=== PATIENT | male | born 1980 | race Caucasian/White ===

== ENCOUNTER 2017-07-23 06:14 | Day surgery (SDC) | payer BC ==
[~2017-07-23] VITALS: Ht 172.7 cm; Wt 86.0 kg
[2017-07-23] MEDS ORDERED: LACTATED RINGERS 1,000 ML IV SCH (06:50)
[2017-07-23] MEDS ORDERED: none per pt (06:50)
[2017-07-23] MEDS ORDERED: EPINEPHRINE 1 MG/ML, 1ML ONE (06:53)
[2017-07-23] MEDS ORDERED: BUPIVACAINE/PF 0.5% ONE (06:53)
[2017-07-23] MEDS ORDERED: CEFAZOLIN 1,000 MG ONE (07:30)
[2017-07-23] MEDS ORDERED: MIDAZOLAM 1 MG/ML, 2ML ONE (07:30)
[2017-07-23] MEDS ORDERED: HYDROmorphone 1 MG/ML, 1ML IV PRN (07:30)
[2017-07-23] MEDS ORDERED: WATER-INJECTION,STERILE 10 ML IV ONE (07:30)
[2017-07-23] MEDS ORDERED: MEPERIDINE/PF 25MG/0.5ML IVPush PRN (07:30)
[2017-07-23] MEDS ORDERED: morphine SULFATE 10 MG/ML, 1ML IV PRN (07:30)
[2017-07-23] MEDS ORDERED: FENTANYL PF 250 MCG/5ML ONE (07:30)
[2017-07-23] MEDS ORDERED: ONDANSETRON 2MG/ML, 2ML IVPush PRN (07:30)
[2017-07-23] MEDS ORDERED: PROMETHAZINE 25 MG/ML, 1ML IV PRN (07:30)
[2017-07-23] MEDS ORDERED: LABETALOL 5MG/ML, 20ML IV PRN (07:30)
[2017-07-23] MEDS ORDERED: PROMETHAZINE 12.5 MG SUPP PR PRN (07:30)
[2017-07-23] MEDS ORDERED: OXYcodone 5 MG/5 ML ORAL.SOL UDC PO PRN (07:30)
[2017-07-23] MEDS ORDERED: hydrALAzine 20 MG/ML, 1ML IV PRN (07:30)
[2017-07-23] MEDS ORDERED: PROPOFOL 10 MG/ML, 20ML ONE (07:30)
[2017-07-23] MEDS ORDERED: FENTANYL PF 100 MCG/2ML IV PRN (07:30)
[2017-07-23] MEDS ORDERED: BUPIVACAINE/PF-EPI 0.5% 1:200K INFIL ONE (07:55)
[2017-07-23] MEDS ORDERED: OXYcodone 5 MG/5 ML ORAL.SOL UDC ONE ×2 (08:42→08:55)
[2017-07-23] MEDS ORDERED: FENTANYL PF 100 MCG/2ML ONE (08:55)
[2017-07-23] MEDS ORDERED: HYDROcodone/APAP 5/325 TABLET PO PRN (10:00)
== END 2017-07-23 11:45 ==
LOC: OUT 06:14
PROVIDERS: ATTEND Surgery
DX: D17.9 Benign lipomatous neoplasm, unspecified (principal)
CPT/HCPCS: 27339; 88305; J0171; J0690; J2250; J2704; J3010; J3490; J7120